=== PATIENT | male | born 2000 | race African-American/Black ===

== ENCOUNTER 2025-02-19 17:36 | Emergency (ER) | payer OTHER ==
[~2025-02-19] VITALS: Ht 182.9 cm; Wt 86.4 kg
[2025-02-19 17:50] VITALS: BP 139/75; PULSE 76; RESP 18; TEMP 98.2; O2SAT 99
[2025-02-19] MEDS: ACETAMINOPHEN 500 MG TABLET PO ONE (19:12)
[2025-02-19] MEDS: IBUPROFEN 600 MG TABLET PO ONE (19:12)
== END 2025-02-19 19:57 | disposition home or self-care (01) ==
LOC: EMS 17:39
DX: S93.402A Sprain of unspecified ligament of left ankle, initial encounter (principal); X50.1XXA Overexertion from prolonged static or awkward postures, initial encounter; Y93.67 Activity, basketball; Y92.89 Other specified places as the place of occurrence of the external cause; Y99.8 Other external cause status
CPT/HCPCS: 99283